=== PATIENT | female | born 1985 ===

== ENCOUNTER 2020-12-21 09:33 | Day surgery (SDC) | payer BC ==
[~2020-12-21] VITALS: Ht 162.6 cm; Wt 98.0 kg
[~2020-12-21 09:33] MED LIST: CIPR500 PO; HYDACE5 PO; NAPR500 PO; OXYACE7.5T PO; PHENA200 PO; PROM25 PO; RXHYDACE PO
[2020-12-21] MEDS ORDERED: OMEP20ER (09:56)
--- NOTE | 2020-12-21 12:26 | NUR ---
12/21/20 1226 Kristin Pelayo PT. WHEN WAKING UP C/O NAUSEA & THEN WENT RIGHT AWAY. PT. STATED "IT'S BETTER."
== END 2020-12-21 11:56 | disposition home or self-care (01) ==
LOC: ORSCSDS 09:33
PROVIDERS: Student in an Organized Health Care Education/Training Program
PROC: 0DB48ZX Excision of Esophagogastric Junction, Via Natural or Artificial Opening Endoscopic, Diagnostic (ICD-10-PCS; principal; 2020-12-21 10:45)
PROC: 0DB68ZX Excision of Stomach, Via Natural or Artificial Opening Endoscopic, Diagnostic (ICD-10-PCS; principal; 2020-12-21 10:45)
PROC: 0DB58ZX Excision of Esophagus, Via Natural or Artificial Opening Endoscopic, Diagnostic (ICD-10-PCS; principal; 2020-12-21 10:45)
PROC: 0DB98ZX Excision of Duodenum, Via Natural or Artificial Opening Endoscopic, Diagnostic (ICD-10-PCS; principal; 2020-12-21 10:45)
DX: R10.13 Epigastric pain (principal); K21.00 Gastro-esophageal reflux disease with esophagitis, without bleeding; K44.9 Diaphragmatic hernia without obstruction or gangrene
CPT/HCPCS: 88305; 88342; J2250; J2704; J7120

== ENCOUNTER → 2021-11-22 | Outpatient (CLI) | payer BC ==
[~2021-11-22] MED LIST changes: +OMEP20ER
[2021-11-22 12:18] LABS: Campylobacter Sp Not Detected (NOT DETECT); Plesiomonas Shigelloides Not Detected (NOT DETECT); Salmonella Sp Not Detected (NOT DETECT); Yersinia Enterocolitica Not Detected (NOT DETECT)
[2021-11-22 12:19] LABS: Adenovirus F 40/41 Not Detected (NOT DETECT); Astrovirus Not Detected (NOT DETECT); Cryptosporidium Not Detected (NOT DETECT); Cyclospora Cayetanensis Not Detected (NOT DETECT); E. Coli O157 Not Detected (NOT DETECT); Entamoeba Histolytica Not Detected (NOT DETECT); Enteroaggregative E. coli-EAEC Not Detected (NOT DETECT); Enteropathogenic E. coli-EPEC Not Detected (NOT DETECT); Enterotoxigenic E. coli-ETEC Not Detected (NOT DETECT); Giardia Lamblia Not Detected (NOT DETECT); Norovirus GI/GII Not Detected (NOT DETECT); Rotavirus A Not Detected (NOT DETECT); Sapovirus Not Detected (NOT DETECT); Shiga Toxin-prod E. coli-STEC Not Detected (NOT DETECT); Shigella/Enteroin E. coli-EIEC Not Detected (NOT DETECT); Vibrio Cholerae Not Detected (NOT DETECT); Vibrio Sp Not Detected (NOT DETECT)
== END | disposition home or self-care (01) ==
LOC: LAB SHORT 08:29 → LAB 08:29
PROVIDERS: Family Medicine
DX: R19.7 Diarrhea, unspecified (principal)
CPT/HCPCS: 87507

== ENCOUNTER → 2022-07-12 | Outpatient (CLI) | payer BC ==
[2022-07-13 15:10] LABS: HPV 16 Negative (Negative); HPV 18 Negative (Negative); HPV OTHER HR TYPES Negative (Negative)
== END | disposition home or self-care (01) ==
LOC: LAB 16:47 → LAB SHORT 16:47
PROVIDERS: Family Medicine
DX: Z12.4 Encounter for screening for malignant neoplasm of cervix (principal)
CPT/HCPCS: 87624; G0145

== ENCOUNTER → 2022-10-10 | Outpatient (CLI) | payer BC | END | disposition home or self-care (01) | LOC: LAB 08:59 → LAB SHORT 08:59 | DX: L08.9 Local infection of the skin and subcutaneous tissue, unspecified (principal); T07.XXXA Unspecified multiple injuries, initial encounter | CPT/HCPCS: 87070; 87075; 87205 ==

== ENCOUNTER 2023-09-18 02:11 | Emergency (ER) | payer BC ==
[~2023-09-18] VITALS: Ht 162.6 cm; Wt 74.8 kg
[2023-09-18 02:28] VITALS: BP 178/100
[2023-09-18] MEDS ORDERED: Acetaminophen 500 MG Tab PO ONE (03:30)
[2023-09-18] MEDS ORDERED: Ibuprofen 600 MG Tab PO ONE (03:30)
== END 2023-09-18 03:44 | disposition home or self-care (01) ==
LOC: ER 02:11
DX: S50.01XA Contusion of right elbow, initial encounter (principal); K21.9 Gastro-esophageal reflux disease without esophagitis; W18.30XA Fall on same level, unspecified, initial encounter; Z79.899 Other long term (current) drug therapy
CPT/HCPCS: 73080; 99283-25; A9270